=== PATIENT | female | born 1985 | race Caucasian/White ===

== ENCOUNTER → 2016-08-03 | Outpatient (CLI) | payer OTHER ==
[~2016-08-03] MED LIST: ACET325C PO; GADOBUTROL 7.5 MMOL/7.5 ML VIAL IV ONE
--- NOTE | 2016-08-03 12:51 | KCIC ---
PROCEDURE MRI brain with and without contrast. HISTORY Facial paresthesia. Migraines. Right facial numbness. TECHNIQUE Sagittal T1, axial T1, axial T2, axial FLAIR, axial T2 gradient, diffusion imaging with ADC map, post-contrast axial, and post-contrast coronal sequences are provided. 7 milliliters of intravenous Gadavist was administered without complication. COMPARISON January 26, 2015. FINDINGS The ventricles are normal in size and configuration. There is no acute intracranial hemorrhage or extra-axial fluid collection. There is no mass effect or midline shift. There is no restricted diffusion to suggest an acute infarct. Sagittal midline structures are unremarkable. Pituitary and suprasellar region are unremarkable. Intracranial flow voids are preserved. There is ethmoid mucosal thickening. There is no pathologic enhancement. IMPRESSION No acute intracranial findings. Electronically signed by: Zak Seymour MD (August 03, 2016 12:50:32)
== END | disposition home or self-care (01) ==
LOC: KCIC MRI 11:30
PROVIDERS: ATTEND Psychiatry & Neurology Neurology
DX: R20.2 Paresthesia of skin (principal)
CPT/HCPCS: 70553; A9585